=== PATIENT | female | born 1995 | race Caucasian/White ===

== ENCOUNTER → 2016-07-27 | Outpatient (CLI) | payer OTHER | LOC: BMCIMAGING 14:09 | PROVIDERS: ATTEND Family Medicine | DX: S69.92XA Unspecified injury of left wrist, hand and finger(s), initial encounter (principal) ==

== ENCOUNTER 2016-10-17 01:42 | Emergency (ER) | payer OTHER ==
[2016-10-17 01:48] VITALS: TEMP 97.9
--- NOTE | 2016-10-17 02:20 | EDPHY ---
H & P Stated Complaint: Chest tightness/SOB HPI/ROS: HPI CHIEF COMPLAINT: Chest tightness, shortness of breath HISTORY OF PRESENT ILLNESS: This patient 21-year-old female otherwise healthy no significant medical history except for exercise-induced asthma, she presents emergency room after she played [employer] this evening. She states approximately 2 hours later she felt chest tightness across her chest. Feel like she can take a deep breath in. She became anxious decided come the emergency room. Denies cough, wheezing, chest pain. No pleuritic pain. No history of DVT or PE not on control. No recent fever recent illness. Past Medical History: Exercise-induced asthma Past Surgical History: No recent surgical history Social History: Denies daily use drugs alcohol tobacco products. Family History: Noncontributory ROS REVIEW OF SYSTEMS: A comprehensive 10 point review of systems is otherwise negative aside from elements mentioned in the history of present illness. Exam Constitutional appears well nontoxic, triage nursing summary reviewed, vital signs reviewed, awake/alert. Eyes normal conjunctivae and sclera, EOMI, PERRLA. HENT normal inspection, atraumatic, moist mucus membranes, no epistaxis, neck supple/ no meningismus, no raccoon eyes. Respiratory clear to auscultation bilaterally, normal breath sounds, no respiratory distress, no wheezing. Cardiovascular rate normal, regular rhythm, no murmur, no edema, distal pulses normal. Gastrointestinal soft, non-tender, no rebound, no guarding, normal bowel sounds, no distension, no pulsatile mass. Genitourinary no CVA tenderness. Musculoskeletal no midline vertebral tenderness, full range of motion, no calf swelling, no tenderness of extremities, no meningismus, good pulses, neurovascularly intact. Skin pink, warm, & dry, no rash, skin atraumatic. Neurologic awake, alert and oriented x 3, AAOx3, moves all 4 extremities equally, motor intact, sensory intact, CN II-XII intact, normal cerebellar, normal vision, normal speech. Psychiatric normal mood/affect. Heme/Lymph/Immune no lymphadenopathy. Differential Diagnosis: Includes but is not limited to in a particular order, pneumothorax, anxiety, panic attack, reactive airway disease, asthma, PE doubt acute coronary syndrome Medical Decision Making: Plan for this patient DuoNeb breathing treatment, chest x-ray two view, EKG. Re-evaluation: EKG interpretation by me on record in [facility] system. Impression time of EKG 2:27 a.m., this is sinus rhythm rate of 69 there is no acute ischemic changes appreciated no ST elevation ST depression or significant T-wave abnormalities. Unremarkable EKG. [id number]: Re-evaluation at this time. Patient is resting comfortably no acute distress. Feels much better after DuoNeb breathing treatment. Chest x-ray has been reviewed in shows no pneumothorax or infiltrate. Her EKG is nonischemic and is not tachycardic. Her current vitals she has a pulse ox on room air of 98 % heart rate 65. She feels much better after DuoNeb breathing treatment she is ready to go home. I will allow her to go home with albuterol prescription. She understands return to the emergency room she develops worsening symptoms questions concerns. I did re-evaluate her lungs they are crystal clear. No wheezing. Good air movement. Source: Patient - Personal History Current Tetanus/Diphtheria Vaccine: Unsure Current Tetanus Diphtheria and Acellular Pertussis (TDAP): Unsure - Medical/Surgical History Hx Asthma: No Hx Chronic Respiratory Disease: No Hx Diabetes: No Hx Cardiac Disease: No Hx Renal Disease: No Hx Cirrhosis: No Hx Alcoholism: No Hx HIV/AIDS: No Hx Splenectomy or Spleen Trauma: No Other PMH: Exercise induced asthma. - Social History Smoking Status: Former smoker Constitutional: Initial Vital Signs Temperature (C) 36.6 C 10/17/16 01:44 Heart Rate 77 10/17/16 01:44 Respiratory Rate 20 10/17/16 01:44 Blood Pressure 111/78 10/17/16 01:44 O2 Sat (%) 99 10/17/16 01:44 O2 Delivery Mode Room Air Allergies/Adverse Reactions: orange juice Allergy (Verified 10/17/16 01:49) Jayshree Greens Allergy (Uncoded 10/17/16 01:49) Kale Allergy (Uncoded 10/17/16 01:49) [place] Chard Allergy (Uncoded 10/17/16 01:49) Home Medications: Medication Instructions Recorded Albuterol [Proventil Inhaler HFA 1 - 2 puffs IH Q4H #1 mdi 10/17/16 (*)] Medical Decision Making - Data Points Medications Given: Discontinued Medications Albuterol/Ipratropium (Duoneb) 3 ml IH EDNOW ONE Stop: 10/17/16 02:35 Last Admin: 10/17/16 02:48 Dose: 3 ml Departure - Departure Disposition: Home, Routine, Self-Care Clinical Impression: Shortness of breath Condition: Good Instructions: Dyspnea (ED) Additional Instructions: 1. Please return to the emergency room if he develops worsening symptoms questions or concerns Referrals: NONE *PRIMARY CARE P,. [Primary Care Provider] - As per Instructions Prescriptions: Albuterol [Proventil Inhaler HFA (*)] 1 - 2 puffs IH Q4H #1 mdi
--- NOTE | 2016-10-17 02:29 | CPEKG ---
Heart Rate: 69 RR Interval: 870 P-R Interval: 156 QRSD Interval: 82 QT Interval: 392 QTC Interval: 420 P [place]: 66 QRS [place]: 26 T Wave [place]: 15 EKG Severity - NORMAL ECG - EKG Impression: SINUS RHYTHM Electronically Signed By: Marlon Fine 17-Oct-2016 06:20:26
[2016-10-17] MEDS ORDERED: IPRATROPIUM/ALBUTEROL 3 ML DEYVIAL IH ONE (02:34)
[2016-10-17 03:25] VITALS: BP 115/74; PULSE 67; RESP 16; O2SAT 97
== END 2016-10-17 03:30 | disposition home or self-care (01) ==
DX: R06.02 Shortness of breath (principal); J45.909 Unspecified asthma, uncomplicated; Z87.891 Personal history of nicotine dependence